=== PATIENT | female | born 1995 | race Caucasian/White ===

== ENCOUNTER 2020-06-04 11:30 | Outpatient (CLI) | payer OTHER ==
--- NOTE | 2020-06-04 12:47 | MRI ---
MRI of thebrain with and without contrast: 06/04/2020 COMPARISON:None available HISTORY:Seizure TECHNIQUE: Multiplanar multisequence MR imaging of thebrain with and without contrast using a seizure protocol Findings:The regional bone marrow signal intensity appears grossly unremarkable. Mild mucosal thickening of the left sphenoid sinus. Arterial flow voids at the axial level of the sku ll base unremarkable on the T2-weighted imaging. The diffusion weighted imaging demonstrates no evidence for acute infarction. The hippocampi demonstrate normal size, structure, and signal intensity on thin section coronal imagi ng. The postcontrast imaging demonstrates no abnormal enhancement within the brain parenchyma. IMPRESSION:Unremarkable contrast enhanced brain MRI using a seizure protocol.
--- NOTE | 2020-06-05 12:30 | EEG ---
DATE OF SERVICE: DESCRIPTION OF THE RECORD: Waking background is a well modulated 9-10 hertz alpha frequency. The patient remained awake throughout the study. Hyperventilation and photic stimulation were unremarkable. No epileptiform features were present. IMPRESSION: This is a normal awake EEG. Job ID: [id number]
== END 2020-06-04 11:31 | disposition home or self-care (01) ==
LOC: MRI 11:30
PROVIDERS: ATTEND Psychiatry & Neurology Neurology
DX: R56.9 Unspecified convulsions (principal)
CPT/HCPCS: 70553; 95816